=== PATIENT | female | born 1970 | race Caucasian/White ===

== ENCOUNTER 2023-02-25 18:22 | Emergency (ER) | payer MEDICAID ==
[~2023-02-25] VITALS: Ht 149.9 cm; Wt 90.0 kg
[2023-02-25 21:40] VITALS: BP 145/80
== END 2023-02-25 21:40 | disposition home or self-care (01) ==
LOC: ER 18:22
DX: S09.90XA Unspecified injury of head, initial encounter (principal); E11.9 Type 2 diabetes mellitus without complications; Z68.41 Body mass index [BMI] 40.0-44.9, adult; Z98.890 Other specified postprocedural states; Y04.0XXA Assault by unarmed brawl or fight, initial encounter; Y93.89 Activity, other specified; Y92.89 Other specified places as the place of occurrence of the external cause; Y99.8 Other external cause status
CPT/HCPCS: 99284

== ENCOUNTER 2023-09-11 20:19 | Emergency (ER) | payer MEDICAID, OTHER ==
[~2023-09-11] VITALS: Ht 149.9 cm; Wt 87.9 kg
[2023-09-11 20:45] VITALS: BP 154/85; PULSE 78; RESP 16; TEMP 98.4; O2SAT 9
[2023-09-12] MEDS ORDERED: ACETAMINOPHEN 500MG TABLET PO ONE (05:45)
[2023-09-12] MEDS ORDERED: IBUPROFEN 400MG TABLET PO NR (05:45)
[2023-09-12] MEDS ORDERED: IBUPROFEN 800MG TABLET PO ONE (05:45)
[2023-09-12] MEDS ORDERED: IBUP-2029 MT (07:14)
== END 2023-09-12 07:46 | disposition home or self-care (01) ==
LOC: ER 20:19
DX: M54.50 Low back pain, unspecified (principal); E11.9 Type 2 diabetes mellitus without complications; I10 Essential (primary) hypertension
CPT/HCPCS: 72100; 99283

== ENCOUNTER 2023-09-16 14:13 | Emergency (ER) | payer MEDICAID ==
[~2023-09-16] VITALS: Ht 160 cm; Wt 91.0 kg
[~2023-09-16 14:13] MED LIST: IBUP-2029 MT
[2023-09-16 14:16] VITALS: PULSE 77; RESP 15
[2023-09-16 14:24] VITALS: BP 154/81; TEMP 98.1; O2SAT 98
== END 2023-09-16 17:15 | disposition home or self-care (01) ==
LOC: ER 14:13
DX: M25.512 Pain in left shoulder (principal); E11.9 Type 2 diabetes mellitus without complications; I10 Essential (primary) hypertension
CPT/HCPCS: 73060; 73080; 99284